=== PATIENT | male | born 1935 | race Caucasian/White ===

== ENCOUNTER 2016-08-24 22:43 | Inpatient (IN) | payer MEDICARE ==
--- NOTE | ~2016-08-24 | HP ---
History And Physical [address] [id number] [place]. [address] NAME: RYLIE WANG SR : 36 STATUS : ADM IN PAT#: [id number] AGE: 81 ADM/REG DATE : 08/25/16 MR#: [id number] REPORT SERV DATE: 08/25/16 DICTATED BY: BRANDIE GIBSON DATE: 08/25/16 REPORT STATUS : Draft TRANSCRIBED BY: MODDurga DATE: 08/25/16 DATE OF ADMISSION: 08/25/2016 CHIEF COMPLAINT: Flu-type symptoms. HISTORY OF PRESENT ILLNESS: The patient is an 81-year-old male with past medical history of diabetes; sleep apnea, not on CPAP; prostate cancer history status post radiation; hypertension; hyperlipidemia, who presents after having progressive shortness of breath and believing he has had flu. The patient is accompanied by son, who reports that the patient has been having constant cough with sputum production, has been green, moderate severity, has been having dull kind of aching issues without radiation. No nausea or vomiting, but has had fevers. Occasional chills, decreased exercise tolerance. He has had exposure with a son having real bad flu, pneumonia-type symptoms. The patient believed that he had flu and he picks that from his son. The patient reports that his symptoms worsened with deep breathing, relieved by rest. Symptoms still currently present and have not resolved. The patient also reports he has had fever, just under 100 degrees. Otherwise, the patient has been doing well, does have mild myalgias. REVIEW OF SYSTEMS: For 10-point review of systems, negative, except that noted in the HPI. PAST MEDICAL HISTORY: Double pneumonia as a child, pancreatitis, diabetes, hypertension, hyperlipidemia, prostate cancer history. SURGICAL HISTORY: Status post radiation, has had knee surgeries, and back surgeries. SOCIAL HISTORY: Quit smoking 50 years ago. Rare alcohol use. No illicits. FAMILY HISTORY: Heart disease, diabetes, black lung. IMAGING: EKG: Rate of 122, sinus tachycardia. ALLERGIES: SULFA AND SEPTRA ALLERGIES. HOME MEDICATIONS: Amlodipine, aspirin, baclofen, benazepril, Neurontin, Lantus, Percocet, Zocor, nebulizer. PHYSICAL EXAMINATION: VITAL SIGNS: The patient's blood pressure 131/64, temperature 99.5, respirations 19, and O2 saturations 94% on room air. Pulse initially 128, down to 95. GENERAL: Well developed, well nourished. EYES: No scleral icterus. EOMI. ENT: Dry mucous membranes, slightly darkened lips bilaterally. Nares patent. Tongue midline. Posterior cobblestoning. RESPIRATORY: Right polyphonic breath sounds. Left side clear. CHEST: Equal chest expansion. History And Physical [address] [address] NAME: RYLIE WANG SR : 36 STATUS : ADM IN [facility]#: [id number] AGE: 81 ADM/REG DATE : 08/25/16 MR#: [id number] REPORT SERV DATE: 08/25/16 DICTATED BY: BRANDIE GIBSON DATE: 08/25/16 REPORT STATUS : Draft TRANSCRIBED BY: KARON DATE: 08/25/16 CV: Mildly tachycardic, but no rubs or gallops. GI: Soft, nontender, and nondistended. Bowel sounds positive. : Deferred. MUSCULOSKELETAL: Moves all extremities x4. SKIN: Warm and dry. LYMPH: No cervical or supraclavicular lymphadenopathy. HEME: No bleeding or bruising. NEURO: Alert and oriented. Moves all extremities. Symmetrical strength. Normal vocal luis. PSYCH: Calm, pleasant, appropriate mood and affect. PERTINENT LABORATORY DATA: WBC count 15. Troponin negative. Flu negative. BUN and creatinine 19 and 1.25. Blood sugar 293. CURB-65 score approximately 2 with BUN at equal 19 and age over 65. Chest x-ray concerning for right side infiltrate. ASSESSMENT: 1. Community-acquired pneumonia. 2. Diabetes type 2. 3. Sleep apnea history. 4. Prostate cancer history. 5. Hypertension. 6. Hyperlipidemia. 7. Possible sepsis. PLAN: 1. For community-acquired pneumonia, IV antibiotics, O2 and check sputum. We will need to monitor clinically as he had productive sputum and does have pneumonia exposures. CURB- 65 approximately 2 due to age and BUN. 2. Diabetes type 2, on insulin. Noted elevation likely in acute setting. 3. Sleep apnea, not on CPAP at home. Monitor O2 as needed. 4. Prostate cancer history status post radiation. 5. Hypertension. Monitor on Norvasc. 6. Hyperlipidemia. On Zocor. 7. Possible sepsis. IV antibiotics given in emergency room. IV fluids. Lactate within normal limits. Does have tachycardia and leukocytosis. Again monitor clinically. All questions were answered with the patient's family at bedside. ЕЛЕНАN/KARON Brandie Gibson MD / [id number] CC: History And Physical [address] [address] NAME: RYLIE WANG SR : 36 STATUS : ADM IN [facility]#: [id number] AGE: 81 ADM/REG DATE : 08/25/16 MR#: [id number] REPORT SERV DATE: 08/25/16 DICTATED BY: BRANDIE GIBSON DATE: 08/25/16 REPORT STATUS : Draft TRANSCRIBED BY: KARON DATE: 08/25/16 Iron Lam M.D.
--- NOTE | ~2016-08-24 | DS ---
Discharge Summary [facility] [address] [place]. [address] NAME: RYLIE WANG SR : 36 STATUS : DIS IN PAT#: [id number] AGE: 81 ADM/REG DATE : 08/25/16 MR#: [id number] REPORT SERV DATE: 08/31/16 DICTATED BY: DATE: REPORT STATUS : Draft TRANSCRIBED BY: MODL DATE: 08/30/16 ADMISSION DATE: 08/25/2016 DISCHARGE DATE: 08/30/2016 DISCHARGE DIAGNOSES: 1. Right lower lobe community-acquired pneumonia with acute hypoxemia. 2. Diabetes mellitus type 2. 3. Hypertension. 4. Obstructive sleep apnea. 5. Chronic pain syndrome. 6. Debility. 7. Hyperlipidemia. 8. Chronic obstructive pulmonary disease. PROCEDURES AND IMAGIN. 08/24/2016, portable chest x-ray showed no evidence of acute cardiopulmonary disease. 2. 08/25/2016, showed increasing right lower lobe pneumonia. 3. 08/27/2016, showed infiltrate of the right lung base is mildly improved from previous study. HOSPITAL STAY: This is a pleasant 81-year-old male with extensive past medical history of diabetes, sleep apnea without use of CPAP, who presented with progressive shortness of breath and occasional chills and fever. The patient does have a positive smoking history, but quit smoking 50 years ago. During his stay, the patient has had a continuous O2 saturation monitor on to help identify periods of oxygen desaturation. During this time, the patient has been assessed by Physical Therapy and it was recommended due to his prior total knee arthroplasty and his debility due to his illness that the patient go for inpatient rehab. The patient has requested [facility] facility only and [facility] will have no beds available for at least a week. The patient refuses to go to [facility] due to prior family issues with this facility. The patient ambulates at home with a walker. He states he was unable to tolerate the CPAP at home with the mask. It was identified the patient does have obstructive sleep apnea and that the patient needs to have outpatient sleep study. Throughout the patient's stay, he has been receiving Rocephin 1 g per IV daily and this will be day #8. This was discussed with Doris, the antibiotic lynette, and it was recommended that no additional antibiotics were needed. The patient's T-max today has been 99.2. During his stay, we have also had some difficulty controlling his diabetes mellitus type 2, for which his A1c is 7.8. His fingerstick blood sugars have been in the mid 200s. The patient has had a home O2 evaluation and his O2 saturation without oxygen with activity was 82%. 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 PHYSICAL EXAMINATION: VITAL SIGNS: Blood pressure 167/74, O2 saturation 95% on 2 L nasal cannula at rest, temperature is 97.8, heart rate is 101, respirations are 18. HEENT: Head is atraumatic, normocephalic. Pupils are equal, round, and reactive to light and accommodation. Sclerae are clear and nonicteric. The patient has poor dentition. Discharge Summary [address] [address] NAME: RYLIE WANG SR : 36 STATUS : DIS IN PAT#: [id number] AGE: 81 ADM/REG DATE : 08/25/16 MR#: [id number] REPORT SERV DATE: 08/31/16 DICTATED BY: DATE: REPORT STATUS : Draft TRANSCRIBED BY: MODL DATE: 08/30/16 NECK: Supple with no obvious lymphadenopathy or thyromegaly. Neck veins are flat. CARDIAC: S1 and S2 with no obvious murmurs, rubs, or gallops. The patient is in a tachycardic rate of up to 110. LUNGS: The patient has slightly increased work of breathing with conversation and does have bilateral lower lobe wheezes. GI: Abdomen is soft and nontender with active bowel sounds in all four quadrants. No palpable organomegaly. Last bowel movement was 08/29/2016. MUSCULOSKELETAL: The patient moves all extremities x4. Is ambulatory with assist and walker. EXTREMITIES: No significant edema, clubbing, or cyanosis. Dorsalis pedis and posterior tibial pulses are present and equal bilaterally. SKIN: Warm and dry with normal color and turgor. NEUROPSYCH: The patient is alert and oriented x4, pleasant, cooperative. Affect is bright. DISCHARGE DIET: The patient will be on a diabetic 1800-calorie diet. DISCHARGE MEDICATIONS: Amlodipine 5 mg twice daily, aspirin 325 mg daily, baclofen 10 mg three times daily as needed for pain, benazepril 40 mg daily, gabapentin 800 mg twice daily, Lantus SoloSTAR pen 30 units at bedtime, mirtazapine 30 mg at bedtime, Zocor 20 mg at bedtime, Percocet 7.5/325 one tablet twice daily scheduled, DuoNeb one inhaler three times a day as needed for shortness of breath, and Dulera 200/5 mcg two puffs twice daily. ALLERGIES: THE PATIENT IS ALLERGIC TO SULFAMETHOXAZOLE AND TRIMETHOPRIM, WHICH CAUSES SWELLING AND RASH. DISCHARGE INSTRUCTIONS: The patient is to follow up with his PCP in one week. The patient is also to have an outpatient sleep study as soon as possible with Dr. Hutchison. Should the patient develop any more symptomatology, he is to call his PCP or present to the ER. Approximately 40 minutes have been spent coordinating discharge care of this patient including [id number] encounter and summarization of the discharge. KALIN/KARON Evelyn Quintero NP / [id number] CC: Iron Maria M.D.
[2016-08-24 22:01] LABS: BASOPHILS 0.1 %; BASOPHILS ABSOLUTE 0.02 10/3/uL (0.0-0.16); EOSINOPHILS 0.4 %; EOSINOPHILS ABSOLUTE 0.06 10/3/uL (0.0-0.53); HEMATOCRIT 44.4 % (40.0-51.0); HEMOGLOBIN 14.7 g/dL (13.6-17.8); IMMATURE GRANULOCYTES 0.3 %; IMMATURE GRANULOCYTES ABSOLUTE 0.05 10/3/uL (0.0-0.11); LYMPHOCYTES 7.3 %; LYMPHOCYTES ABSOLUTE 1.09 10/3/uL (0.67-4.30); MEAN CORPUS HGB CONC 33.1 g/dL (32.0-36.0); MEAN CORPUSCULAR HEMOGLOB 32.2 pg (26.0-34.0); MEAN CORPUSCULAR VOLUME 97.4 fL (80-100); MONOCYTES 8.8 %; MONOCYTES ABSOLUTE 1.33 10/3/uL (0.21-1.20); NEUTROPHILS 83.1 %; NEUTROPHILS ABSOLUTE 12.48 10/3/uL (2.02-8.40); PLATELET COUNT 261 10/3/uL (150-400); RBC DISTRIBUTION WIDTH 13.2 % (12.0-16.0); RED CELL COUNT 4.56 10/6/uL (4.7-6.1)
[2016-08-24 22:02] LABS: MANUAL DIFF NO %
[2016-08-24 22:11] LABS: INTERNATIONAL NORMAL RATI 1.2 UNITS (-); PARTIAL THROMBO TIME 34.9 SEC (22.5-37.2); PROTIME (NOT ORD) 15.2 SEC (12.0-14.5)
[2016-08-24 22:12] LABS: INFLUENZA A SCREEN NEGATIVE (NEGATIVE); INFLUENZA B SCREEN NEGATIVE (NEGATIVE)
[2016-08-24 22:17] LABS: BUN (BLOOD UREA NITROGEN) 19 MG/DL (6-23); CALCIUM, SERUM 8.6 MG/DL (8.5-10.4); CHEST PAIN PROFILE TAT 0 Hrs 21 Mins; CHLORIDE, SERUM 100 MMOL/L (96-112); CO2 (CARBON DIOXIDE) 27 MMOL/L (24-34); CREATININE 1.25 MG/DL (0.70-1.30); GFR AFRICAN AMERICAN 63 ML/MIN (>=60); GFR NON AFRICAN AMERICAN 54 ML/MIN (>=60); GLUCOSE, SERUM 293 MG/DL (60-99); POTASSIUM, SERUM 4.2 MMOL/L (3.5-5.3); SODIUM, SERUM 136 MMOL/L (135-148); TROPONIN I <0.02 NG/ML (<0.05)
[~2016-08-24 22:43] MED LIST: AMB10 PO; ASA5GR PO; AVANDIA2 PO; C5; CADUET5 MG/20 MG PO; DCN100 PO; DIABETA5 PO; FLOMAX4 PO; GLUCOTRO10 PO; GLUCXL5 PO; LANTUS SC; LIOR10 PO; LORT7 PO; LOTE40 PO; LOTREL1 CA2 PO; METHOC500B PO; MOBIC15 MG PO; MOBIC7.5 PO; NEUR300 PO; NORV5 PO; PCET PO; PRILOSEC40 MG PO; PROAIR HFA INH; PROVENT20 INH; PROVENTSOL INH; PROZAC PO; RANITIDINE300 MG PO; SYMBICORT 160/41 INH INH; V2 PO; VOLTAREN1 % TOP; ZANTAC300 MG PO; ZOCOR20 PO
[2016-08-24 22:45] LABS: LACTATE 1.5 MMOL/L (0.3-2.4)
[2016-08-24] MEDS ORDERED: LANTUSCART SC (22:50)
[2016-08-24] MEDS ORDERED: NORV5 PO (22:51)
[2016-08-24] MEDS ORDERED: LOTE40 PO (22:51)
[2016-08-24] MEDS ORDERED: ASABAYER PO (22:52)
[2016-08-24] MEDS ORDERED: PERCOCET 7.5/321 TAB PO (22:52)
[2016-08-24] MEDS ORDERED: ZOCOR20 PO (22:52)
[2016-08-24] MEDS ORDERED: LIOR10 PO (22:53)
[2016-08-24] MEDS ORDERED: NEUR800 PO (22:53)
[2016-08-24] MEDS ORDERED: DUONEB INH (22:55)
[2016-08-25] MEDS ORDERED: REMERON30 MG PO (09:26)
[2016-08-25 09:32] LABS: PROCALCITONIN 0.71 ng/mL (<0.5)
[2016-08-26 06:25] LABS: BASOPHILS 0.1 %; BASOPHILS ABSOLUTE 0.01 10/3/uL (0.0-0.16); EOSINOPHILS 2.1 %; EOSINOPHILS ABSOLUTE 0.24 10/3/uL (0.0-0.53); HEMATOCRIT 38.6 % (40.0-51.0); HEMOGLOBIN 12.7 g/dL (13.6-17.8); IMMATURE GRANULOCYTES 0.4 %; IMMATURE GRANULOCYTES ABSOLUTE 0.05 10/3/uL (0.0-0.11); LYMPHOCYTES 10.8 %; LYMPHOCYTES ABSOLUTE 1.21 10/3/uL (0.67-4.30); MANUAL DIFF NO %; MEAN CORPUS HGB CONC 32.9 g/dL (32.0-36.0); MEAN CORPUSCULAR HEMOGLOB 32.1 pg (26.0-34.0); MEAN CORPUSCULAR VOLUME 97.5 fL (80-100); MEAN PLATELET VOLUME 10.6 fL (9.2-13.0); MONOCYTES 11.8 %; MONOCYTES ABSOLUTE 1.32 10/3/uL (0.21-1.20); NEUTROPHILS 74.8 %; NEUTROPHILS ABSOLUTE 8.36 10/3/uL (2.02-8.40); PLATELET COUNT 267 10/3/uL (150-400); RBC DISTRIBUTION WIDTH 13.5 % (12.0-16.0); RED CELL COUNT 3.96 10/6/uL (4.7-6.1); WHITE BLOOD CELLS 11.2 10/3/uL (4.5-10.5)
[2016-08-26 06:37] LABS: CALCIUM, SERUM 8.4 MG/DL (8.5-10.4); CHLORIDE, SERUM 106 MMOL/L (96-112); CO2 (CARBON DIOXIDE) 26 MMOL/L (24-34); CREATININE 1.06 MG/DL (0.70-1.30); GFR AFRICAN AMERICAN 76 ML/MIN (>=60); GFR NON AFRICAN AMERICAN 66 ML/MIN (>=60); PHOSPHORUS, SERUM 2.4 MG/DL (2.5-4.5); POTASSIUM, SERUM 3.9 MMOL/L (3.5-5.3); SODIUM, SERUM 140 MMOL/L (135-148)
[2016-08-26 06:38] LABS: ALBUMIN 2.2 G/DL (3.5-5.0); BUN (BLOOD UREA NITROGEN) 24 MG/DL (6-23); GLUCOSE, SERUM 176 MG/DL (60-99)
[2016-08-26 07:25] LABS: PROCALCITONIN 0.78 ng/mL (<0.5)
[2016-08-27 07:20] LABS: BASOPHILS 0.3 %; BASOPHILS ABSOLUTE 0.03 10/3/uL (0.0-0.16); EOSINOPHILS 4.3 %; EOSINOPHILS ABSOLUTE 0.45 10/3/uL (0.0-0.53); HEMATOCRIT 41.4 % (40.0-51.0); HEMOGLOBIN 13.2 g/dL (13.6-17.8); IMMATURE GRANULOCYTES 0.6 %; IMMATURE GRANULOCYTES ABSOLUTE 0.06 10/3/uL (0.0-0.11); LYMPHOCYTES 10.9 %; LYMPHOCYTES ABSOLUTE 1.14 10/3/uL (0.67-4.30); MEAN CORPUS HGB CONC 31.9 g/dL (32.0-36.0); MEAN CORPUSCULAR HEMOGLOB 31.1 pg (26.0-34.0); MEAN CORPUSCULAR VOLUME 97.4 fL (80-100); MEAN PLATELET VOLUME 10.5 fL (9.2-13.0); MONOCYTES 10.3 %; MONOCYTES ABSOLUTE 1.08 10/3/uL (0.21-1.20); NEUTROPHILS 73.6 %; PLATELET COUNT 289 10/3/uL (150-400); RBC DISTRIBUTION WIDTH 13.8 % (12.0-16.0); RED CELL COUNT 4.25 10/6/uL (4.7-6.1); WHITE BLOOD CELLS 10.5 10/3/uL (4.5-10.5)
[2016-08-27 07:21] LABS: MANUAL DIFF NO %
[2016-08-27 07:34] LABS: ALBUMIN 2.1 G/DL (3.5-5.0); CALCIUM, SERUM 8.8 MG/DL (8.5-10.4); CHLORIDE, SERUM 104 MMOL/L (96-112); CO2 (CARBON DIOXIDE) 25 MMOL/L (24-34); CREATININE 0.95 MG/DL (0.70-1.30); GFR AFRICAN AMERICAN 87 ML/MIN (>=60); GFR NON AFRICAN AMERICAN 75 ML/MIN (>=60); GLUCOSE, SERUM 190 MG/DL (60-99); PHOSPHORUS, SERUM 2.7 MG/DL (2.5-4.5); POTASSIUM, SERUM 3.9 MMOL/L (3.5-5.3); SODIUM, SERUM 139 MMOL/L (135-148)
[2016-08-27 07:35] LABS: BUN (BLOOD UREA NITROGEN) 20 MG/DL (6-23)
[2016-08-27 20:37] LABS: BASOPHILS 0.1 %; BASOPHILS ABSOLUTE 0.01 10/3/uL (0.0-0.16); EOSINOPHILS 0 %; HEMATOCRIT 42.8 % (40.0-51.0); HEMOGLOBIN 13.8 g/dL (13.6-17.8); IMMATURE GRANULOCYTES 0.9 %; IMMATURE GRANULOCYTES ABSOLUTE 0.08 10/3/uL (0.0-0.11); LYMPHOCYTES 5.7 %; LYMPHOCYTES ABSOLUTE 0.54 10/3/uL (0.67-4.30); MEAN CORPUS HGB CONC 32.2 g/dL (32.0-36.0); MEAN CORPUSCULAR VOLUME 96.2 fL (80-100); MEAN PLATELET VOLUME 10.5 fL (9.2-13.0); MONOCYTES 2.2 %; MONOCYTES ABSOLUTE 0.21 10/3/uL (0.21-1.20); NEUTROPHILS 91.1 %; NEUTROPHILS ABSOLUTE 8.57 10/3/uL (2.02-8.40); PLATELET COUNT 320 10/3/uL (150-400); RBC DISTRIBUTION WIDTH 13.7 % (12.0-16.0); RED CELL COUNT 4.45 10/6/uL (4.7-6.1); WHITE BLOOD CELLS 9.4 10/3/uL (4.5-10.5)
[2016-08-27 20:39] LABS: MANUAL DIFF NO %
[2016-08-27 20:47] LABS: INTERNATIONAL NORMAL RATI 1.1 UNITS (-); PARTIAL THROMBO TIME 31.9 SEC (22.5-37.2); PROTIME (NOT ORD) 14.4 SEC (12.0-14.5)
[2016-08-27 20:53] LABS: ALBUMIN 2.3 G/DL (3.5-5.0); BUN (BLOOD UREA NITROGEN) 22 MG/DL (6-23); CALCIUM, SERUM 9.1 MG/DL (8.5-10.4); CHLORIDE, SERUM 103 MMOL/L (96-112); CO2 (CARBON DIOXIDE) 28 MMOL/L (24-34); CREATININE 1.11 MG/DL (0.70-1.30); GFR AFRICAN AMERICAN 72 ML/MIN (>=60); GFR NON AFRICAN AMERICAN 62 ML/MIN (>=60); SGOT(AST) 32 U/L (5-40); SGPT(ALT) 30 U/L (5-65); SODIUM, SERUM 139 MMOL/L (135-148); TOTAL BILIRUBIN 0.4 MG/DL (0-1.2); TOTAL PROTEIN 7.6 G/DL (6.0-8.5)
[2016-08-27 20:55] LABS: A/G RATIO 0.4 (0.7-1.9); ALKALINE PHOSPHATASE 129 U/L (45-117); GLOBULIN 5.3 G/DL (2.5-4.1); GLUCOSE, SERUM 377 MG/DL (60-99); POTASSIUM, SERUM 5.1 MMOL/L (3.5-5.3)
[2016-08-28 06:34] LABS: BASOPHILS 0.2 %; BASOPHILS ABSOLUTE 0.03 10/3/uL (0.0-0.16); EOSINOPHILS 0 %; HEMATOCRIT 40.7 % (40.0-51.0); HEMOGLOBIN 13.3 g/dL (13.6-17.8); IMMATURE GRANULOCYTES ABSOLUTE 0.14 10/3/uL (0.0-0.11); LYMPHOCYTES 7.8 %; LYMPHOCYTES ABSOLUTE 1.09 10/3/uL (0.67-4.30); MEAN CORPUS HGB CONC 32.7 g/dL (32.0-36.0); MEAN CORPUSCULAR HEMOGLOB 31.4 pg (26.0-34.0); MEAN CORPUSCULAR VOLUME 96.2 fL (80-100); MEAN PLATELET VOLUME 10.6 fL (9.2-13.0); MONOCYTES 7.3 %; MONOCYTES ABSOLUTE 1.01 10/3/uL (0.21-1.20); NEUTROPHILS 83.7 %; NEUTROPHILS ABSOLUTE 11.64 10/3/uL (2.02-8.40); PLATELET COUNT 338 10/3/uL (150-400); RBC DISTRIBUTION WIDTH 13.7 % (12.0-16.0); RED CELL COUNT 4.23 10/6/uL (4.7-6.1)
[2016-08-28 06:35] LABS: CALCIUM, SERUM 9.3 MG/DL (8.5-10.4); CHLORIDE, SERUM 107 MMOL/L (96-112); CO2 (CARBON DIOXIDE) 24 MMOL/L (24-34); CREATININE 1.03 MG/DL (0.70-1.30); GFR AFRICAN AMERICAN 79 ML/MIN (>=60); GFR NON AFRICAN AMERICAN 68 ML/MIN (>=60); MANUAL DIFF NO %; POTASSIUM, SERUM 4.6 MMOL/L (3.5-5.3); SODIUM, SERUM 141 MMOL/L (135-148); WHITE BLOOD CELLS 13.9 10/3/uL (4.5-10.5)
[2016-08-28 06:36] LABS: BUN (BLOOD UREA NITROGEN) 26 MG/DL (6-23); GLUCOSE, SERUM 261 MG/DL (60-99)
[2016-08-29 06:25] LABS: BASOPHILS 0.5 %; BASOPHILS ABSOLUTE 0.04 10/3/uL (0.0-0.16); EOSINOPHILS ABSOLUTE 0.23 10/3/uL (0.0-0.53); HEMATOCRIT 40.3 % (40.0-51.0); HEMOGLOBIN 13.1 g/dL (13.6-17.8); IMMATURE GRANULOCYTES 1.8 %; IMMATURE GRANULOCYTES ABSOLUTE 0.14 10/3/uL (0.0-0.11); LYMPHOCYTES 13.7 %; LYMPHOCYTES ABSOLUTE 1.06 10/3/uL (0.67-4.30); MEAN CORPUS HGB CONC 32.5 g/dL (32.0-36.0); MEAN CORPUSCULAR HEMOGLOB 31.6 pg (26.0-34.0); MEAN CORPUSCULAR VOLUME 97.1 fL (80-100); MEAN PLATELET VOLUME 10.2 fL (9.2-13.0); MONOCYTES 10.9 %; MONOCYTES ABSOLUTE 0.84 10/3/uL (0.21-1.20); NEUTROPHILS 70.1 %; PLATELET COUNT 324 10/3/uL (150-400); RBC DISTRIBUTION WIDTH 13.7 % (12.0-16.0); RED CELL COUNT 4.15 10/6/uL (4.7-6.1)
[2016-08-29 06:26] LABS: MANUAL DIFF NO %; WHITE BLOOD CELLS 7.7 10/3/uL (4.5-10.5)
[2016-08-29 06:41] LABS: ALBUMIN 2.1 G/DL (3.5-5.0); CALCIUM, SERUM 8.5 MG/DL (8.5-10.4); CHLORIDE, SERUM 107 MMOL/L (96-112); CO2 (CARBON DIOXIDE) 27 MMOL/L (24-34); CREATININE 0.79 MG/DL (0.70-1.30); GFR AFRICAN AMERICAN 98 ML/MIN (>=60); GFR NON AFRICAN AMERICAN 85 ML/MIN (>=60); PHOSPHORUS, SERUM 3.5 MG/DL (2.5-4.5); POTASSIUM, SERUM 4.3 MMOL/L (3.5-5.3); SODIUM, SERUM 142 MMOL/L (135-148)
[2016-08-29 06:42] LABS: BUN (BLOOD UREA NITROGEN) 22 MG/DL (6-23); GLUCOSE, SERUM 158 MG/DL (60-99)
[2016-08-29 13:03] LABS: T PROTEIN (ELECT)(NOT OR 6.2 G/DL (6.0-8.5)
[2016-08-30 05:19] LABS: CALCIUM, SERUM 8.5 MG/DL (8.5-10.4); CHLORIDE, SERUM 102 MMOL/L (96-112); CO2 (CARBON DIOXIDE) 29 MMOL/L (24-34); CREATININE 0.83 MG/DL (0.70-1.30); GFR AFRICAN AMERICAN 96 ML/MIN (>=60); GFR NON AFRICAN AMERICAN 83 ML/MIN (>=60); POTASSIUM, SERUM 4.4 MMOL/L (3.5-5.3); SODIUM, SERUM 141 MMOL/L (135-148)
[2016-08-30 05:21] LABS: BUN (BLOOD UREA NITROGEN) 18 MG/DL (6-23); GLUCOSE, SERUM 193 MG/DL (60-99)
[2016-08-30 12:00] LABS: A/G 0.76 RATIO (0.9-2.10); ALB RELATIVE % 43.1 % (60.0-89.0); ALBUMIN (ELECTRO) 2.67 GM/DL (3.2-5.5); ALPHA 1 (ELECTRO) 0.43 GM/DL (0.1-0.4); ALPHA 1 RELAT % (NOT ORD) 6.9 % (1.0-4.0); ALPHA 2 (ELECTRO) 1.22 GM/DL (0.5-1.10); ALPHA 2 RELAT % 19.6 % (4.5-26.0); BETA GLOBULIN (SPE) 0.93 GM/DL (0.60-1.30); GAMMA GLOBULIN (SPE) 0.95 G/DL (0.70-1.60); GAMMA RELAT % 15.4 % (6.0-22.0)
[2016-08-30] MEDS ORDERED: DULERA 200 MCG/13 GM INH (18:14)
== END 2016-08-30 18:52 | disposition home health service (06) | DRG 871 ==
LOC: ER 22:43 → 6NO 08-25 00:22
PROVIDERS: Hospitalist; Internal Medicine; Nurse Practitioner; Student in an Organized Health Care Education/Training Program
DX: A41.9 Sepsis, unspecified organism (principal); J96.01 Acute respiratory failure with hypoxia; J18.9 Pneumonia, unspecified organism; J44.0 Chronic obstructive pulmonary disease with (acute) lower respiratory infection; J44.9 Chronic obstructive pulmonary disease, unspecified; E11.65 Type 2 diabetes mellitus with hyperglycemia; I10 Essential (primary) hypertension; G47.33 Obstructive sleep apnea (adult) (pediatric); G89.4 Chronic pain syndrome; E78.5 Hyperlipidemia, unspecified; Z87.891 Personal history of nicotine dependence; Z85.46 Personal history of malignant neoplasm of prostate; Z92.3 Personal history of irradiation; Z88.1 Allergy status to other antibiotic agents; Z88.2 Allergy status to sulfonamides; Z79.4 Long term (current) use of insulin; Z83.3 Family history of diabetes mellitus
CPT/HCPCS: 71010; 71020; 80048; 80053; 80069; 82962; 83605; 83735; 83880; 84145; 84155; 84165; 84484; 85025; 85610; 85730; 87040; 87804; 93005; 94640; 96365; 96375; 97116-GP; 97161-GP; 99285; A9270-GY; G8978-CK-GP; G8979-CI-GP; J0456; J2930